=== PATIENT | male | born 1985 | race Caucasian/White ===

== ENCOUNTER → 2017-01-23 | Outpatient (REF) | LOC: ZLAB.WCH 18:55 | DX: Z02.89 Encounter for other administrative examinations (principal) ==

== ENCOUNTER → 2022-11-18 | Outpatient (CLI) | payer BC | LOC: COL.RAD 07:46 | DX: S43.431A Superior glenoid labrum lesion of right shoulder, initial encounter (principal) | CPT/HCPCS: A9575; Q9967 ==